=== PATIENT | male | born 1970 | race Caucasian/White ===

== ENCOUNTER 2018-10-16 21:05 | Inpatient (IN) | payer OTHER ==
[2018-10-16] MEDS ORDERED: NACL 0.9% 3 ML SYG IV (22:30)
[2018-10-16] MEDS ORDERED: ACETAMINOPHEN 325 MG TAB PO (22:30)
[2018-10-16] MEDS ORDERED: ONDANSETRON 4 MG INJ IV (22:30)
[2018-10-16] MEDS: CHLORDIAZEPOXIDE 25 MG CAP PO (23:46)
[2018-10-17] MEDS: LORAZEPAM 2 MG INJ IV ×7 (01:09→23:43)
[2018-10-17] MEDS ORDERED: DIPHENHYDRAMINE 50 MG INJ (05:21)
[2018-10-17] MEDS ORDERED: HALOPERIDOL 5 MG INJ (05:26)
[2018-10-17] MEDS: DIPHENHYDRAMINE 50 MG INJ IV (05:31)
[2018-10-17] MEDS: HALOPERIDOL 5 MG INJ IM (05:32)
[2018-10-17 07:01] LABS: ADD MAN DIFF? NO; HAAIG REFLEX REFLEX FILED
[2018-10-17 07:13] LABS: WHITE BLOOD COUNT 9.9 10^3/ul (4.8-10.8)
[2018-10-17 07:13] LABS: BASOPHIL # 0.1 10^3/ul (0.0-0.1); BASOPHILS % 0.9 % (0.0-2.0); EOSINOPHILS # 0.2 10^3/ul (0.0-0.5); EOSINOPHILS % 2.4 % (0.0-7.0); HEMOGLOBIN 12.9 g/dl (14.0-18.0); LYMPHOCYTES # 1.2 10^3/ul (0.8-2.9); LYMPHOCYTES % 11.9 % (15.0-51.0); MEAN CORPUSCULAR HGB CONC 35.8 g/dl (32.0-37.0); MEAN CORPUSCULAR VOLUME 103.2 fl (82.0-101.0); MEAN PLATELET VOLUME 10.4 fl (7.4-10.4); MONOCYTES % 9.9 % (0.0-11.0); NEUTROPHIL # 7.4 10^3/ul (1.6-7.5); NEUTROPHILS % 74.5 % (39.0-77.0); PLATELET COUNT 108 10^3/UL (140-415); RED BLOOD COUNT 3.49 10^6/ul (4.70-6.10); RED CELL DISTRIBUTION WIDTH 13.6 % (11.5-14.5)
[2018-10-17 07:20] LABS: HEMOGLOBIN A1C 4.6 % (0-5.9)
[2018-10-17 07:34] LABS: ALANINE AMINOTRANSFERASE 21 IU/L (13-69); ALBUMIN 2.9 g/dl (3.3-4.9); ALBUMIN/GLOBULIN RATIO 0.63; ALKALINE PHOSPHATASE 156 IU/L (42-121); ANION GAP 10 (5-13); ASPARTATE AMINO TRANSFERASE 99 IU/L (15-46); BILIRUBIN,INDIRECT 2.2 mg/dl (0-1.1); BILIRUBIN,TOTAL 2.6 mg/dl (0.2-1.3); BLOOD UREA NITROGEN 6 mg/dl (7-20); CARBON DIOXIDE 27 mmol/L (21-31); CHLORIDE 101 mmol/L (97-110); CHOL/HDL RATIO 4.7 RATIO; CHOLESTEROL 124 mg/dl (100-200); CREATININE 0.49 mg/dl (0.61-1.24); Estimated GFR > 60 mL/min (>60); GLUCOSE 92 mg/dl (70-220); HDL CHOLESTEROL 26 mg/dl (27-67); LDL CHOLESTEROL,CALCULATED 83 mg/dl; MAGNESIUM 1.2 mg/dl (1.7-2.5); POTASSIUM 3.2 mmol/L (3.5-5.1); SODIUM 138 mmol/L (135-144); TOTAL PROTEIN 7.5 g/dl (6.1-8.1); TRIGLYCERIDES 77 mg/dl (0-149)
[2018-10-17 08:01] LABS: HEPATITIS B SURFACE ANTIGEN NEGATIVE (NEGATIVE)
[2018-10-17 08:18] LABS: HEPATITIS B CORE ANTIBODY NEGATIVE (NEGATIVE)
[2018-10-17 08:19] LABS: HEPATITIS B SURFACE ANTIBODY NEGATIVE (NEGATIVE)
[2018-10-17] MEDS: FOLIC ACID 1 MG TAB PO (08:57)
[2018-10-17] MEDS: FAMOTIDINE 20 MG TAB PO ×2 (08:58→23:52)
[2018-10-17] MEDS: MULTIVITAMINS THERAPEUTIC TAB PO (08:58)
[2018-10-17] MEDS: THIAMINE 100 MG TAB PO (08:58)
[2018-10-17] MEDS: CHLORDIAZEPOXIDE 25 MG CAP PO ×3 (09:10→23:28)
[2018-10-17] MEDS: SOD CHLORIDE 0.9% 1,000 ML IV ×3 (09:11→23:52)
[2018-10-17] MEDS: MAGNESIUM SULFATE 4 GM/100 ML 100 ML IVPB (10:37)
[2018-10-17 13:38] LABS: ETHANOL < 10.0 mg/dl (0-0)
[2018-10-17] MEDS: MULTIVITAMINS 10 ML, FOLIC ACID 1 MG in SOD CHLORIDE 0.9% 1,000 ML IVPB (14:13)
[2018-10-17] MEDS: POTASSIUM CHLORIDE (SR) 20 MEQ TAB PO (17:40)
[2018-10-17 19:13] LABS: AMMONIA 34 umol/l (9-30)
[2018-10-17 19:53] LABS: HEPATITIS C VIRAL ANTIBODY NEGATIVE (NEGATIVE)
[2018-10-18 06:57] LABS: ADD MAN DIFF? NO
[2018-10-18 07:04] LABS: WHITE BLOOD COUNT 7.7 10^3/ul (4.8-10.8)
[2018-10-18 07:04] LABS: ABNORMAL IP MESSAGE 1; BASOPHIL # 0.1 10^3/ul (0.0-0.1); EOSINOPHILS # 0.4 10^3/ul (0.0-0.5); EOSINOPHILS % 4.7 % (0.0-7.0); HEMATOCRIT 32.4 % (42.0-52.0); HEMOGLOBIN 11.6 g/dl (14.0-18.0); LYMPHOCYTES # 1.1 10^3/ul (0.8-2.9); LYMPHOCYTES % 14.5 % (15.0-51.0); MEAN CORPUSCULAR HEMOGLOBIN 37.5 pg (29.0-33.0); MEAN CORPUSCULAR HGB CONC 35.8 g/dl (32.0-37.0); MEAN CORPUSCULAR VOLUME 104.9 fl (82.0-101.0); MEAN PLATELET VOLUME 10.4 fl (7.4-10.4); MONOCYTE # 0.8 10^3/ul (0.3-0.9); MONOCYTES % 10.7 % (0.0-11.0); NEUTROPHIL # 5.3 10^3/ul (1.6-7.5); NEUTROPHILS % 68.6 % (39.0-77.0); PLATELET COUNT 83 10^3/UL (140-415); POSITIVE DIFF @See below; RED BLOOD COUNT 3.09 10^6/ul (4.70-6.10); RED CELL DISTRIBUTION WIDTH 14.4 % (11.5-14.5)
[2018-10-18 07:26] LABS: PHOSPHORUS 3.6 mg/dl (2.5-4.9)
[2018-10-18 07:26] LABS: MAGNESIUM 1.6 mg/dl (1.7-2.5)
[2018-10-18 07:27] LABS: ALANINE AMINOTRANSFERASE 23 IU/L (13-69); ALBUMIN 2.4 g/dl (3.3-4.9); ALKALINE PHOSPHATASE 117 IU/L (42-121); ASPARTATE AMINO TRANSFERASE 87 IU/L (15-46); BILIRUBIN,INDIRECT 2.1 mg/dl (0-1.1); BILIRUBIN,TOTAL 2.6 mg/dl (0.2-1.3); TOTAL PROTEIN 6.2 g/dl (6.1-8.1)
[2018-10-18 07:30] LABS: AMMONIA 57 umol/l (9-30)
[2018-10-18] MEDS: SOD CHLORIDE 0.9% 1,000 ML IV ×2 (08:00→17:50)
[2018-10-18] MEDS: MULTIVITAMINS 10 ML, FOLIC ACID 1 MG in SOD CHLORIDE 0.9% 1,000 ML IVPB (08:28)
[2018-10-18] MEDS: CHLORDIAZEPOXIDE 25 MG CAP PO ×3 (08:29→21:16)
[2018-10-18] MEDS: THIAMINE 100 MG TAB PO (08:29)
[2018-10-18] MEDS: FAMOTIDINE 20 MG TAB PO ×2 (08:29→21:15)
[2018-10-18 11:16] LABS: ADD UMIC YES; UR AMORPHOUS CRYSTAL FEW /HPF (NONE SEEN); UR ASCORBIC ACID NEGATIVE (NEGATIVE); UR BACTERIA FEW /HPF (NONE SEEN); UR BILIRUBIN (Dip) NEGATIVE (NEGATIVE); UR BLOOD (Dip) NEGATIVE (NEGATIVE); UR CLARITY CLOUDY (CLEAR); UR COLOR AMBER (YELLOW); UR GLUCOSE (Dip) NEGATIVE (NEGATIVE); UR KETONES (Dip) NEGATIVE (NEGATIVE); UR LEUKOCYTE ESTERASE (Dip) NEGATIVE Leu/ul (NEGATIVE); UR NITRITE (Dip) NEGATIVE (NEGATIVE); UR RBC 1 /HPF (0-5); UR SPECIFIC GRAVITY (Dip) 1.009 (1.003-1.030); UR TOTAL PROTEIN (Dip) NEGATIVE (NEGATIVE); UR UROBILINOGEN (Dip) 1+ mg/dL (NEGATIVE); UR WBC 2 /HPF (0-5)
[2018-10-18] MEDS: LACTULOSE 30ML CUP PO ×3 (12:08→21:15)
[2018-10-18] MEDS: MAGNESIUM SULFATE 2 GM/50 ML 50 ML IVPB (12:10)
[2018-10-18 12:56] LABS: ANION GAP 7 (5-13); BLOOD UREA NITROGEN 5 mg/dl (7-20); CALCIUM 8.4 mg/dl (8.4-10.2); CARBON DIOXIDE 24 mmol/L (21-31); CHLORIDE 111 mmol/L (97-110); CREATININE 0.41 mg/dl (0.61-1.24); Estimated GFR > 60 mL/min (>60); GLUCOSE 86 mg/dl (70-220); POTASSIUM 3.2 mmol/L (3.5-5.1); SODIUM 142 mmol/L (135-144)
[2018-10-18] MEDS: POTASSIUM CHLORIDE (SR) 20 MEQ TAB PO (14:25)
[2018-10-19] MEDS: SOD CHLORIDE 0.9% 1,000 ML IV ×2 (04:01→14:00)
[2018-10-19] MEDS: LACTULOSE 30ML CUP PO ×3 (05:41→21:49)
[2018-10-19 06:12] LABS: ADD MAN DIFF? NO
[2018-10-19 06:16] LABS: WHITE BLOOD COUNT 7.7 10^3/ul (4.8-10.8)
[2018-10-19 06:16] LABS: ABNORMAL IP MESSAGE 1; BASOPHIL # 0.1 10^3/ul (0.0-0.1); BASOPHILS % 0.9 % (0.0-2.0); EOSINOPHILS # 0.3 10^3/ul (0.0-0.5); EOSINOPHILS % 3.8 % (0.0-7.0); HEMATOCRIT 34.5 % (42.0-52.0); HEMOGLOBIN 12.4 g/dl (14.0-18.0); LYMPHOCYTES # 1.1 10^3/ul (0.8-2.9); MEAN CORPUSCULAR HEMOGLOBIN 37.2 pg (29.0-33.0); MEAN CORPUSCULAR HGB CONC 35.9 g/dl (32.0-37.0); MEAN CORPUSCULAR VOLUME 103.6 fl (82.0-101.0); MEAN PLATELET VOLUME 9.8 fl (7.4-10.4); MONOCYTE # 0.9 10^3/ul (0.3-0.9); MONOCYTES % 11.7 % (0.0-11.0); NEUTROPHIL # 5.3 10^3/ul (1.6-7.5); NEUTROPHILS % 69.3 % (39.0-77.0); PLATELET COUNT 92 10^3/UL (140-415); POSITIVE DIFF @See below; RED BLOOD COUNT 3.33 10^6/ul (4.70-6.10); RED CELL DISTRIBUTION WIDTH 14.2 % (11.5-14.5)
[2018-10-19 06:45] LABS: AMMONIA 30 umol/l (9-30)
[2018-10-19 06:47] LABS: ANION GAP 5 (5-13); BLOOD UREA NITROGEN 4 mg/dl (7-20); CALCIUM 8.2 mg/dl (8.4-10.2); CARBON DIOXIDE 24 mmol/L (21-31); CHLORIDE 113 mmol/L (97-110); CREATININE 0.42 mg/dl (0.61-1.24); Estimated GFR > 60 mL/min (>60); GLUCOSE 82 mg/dl (70-220); POTASSIUM 3.2 mmol/L (3.5-5.1); SODIUM 142 mmol/L (135-144)
[2018-10-19 06:49] LABS: MAGNESIUM 1.5 mg/dl (1.7-2.5)
[2018-10-19 06:49] LABS: PHOSPHORUS 3.1 mg/dl (2.5-4.9)
[2018-10-19] MEDS: CHLORDIAZEPOXIDE 25 MG CAP PO ×2 (09:10→21:50)
[2018-10-19] MEDS: THIAMINE 100 MG TAB PO (09:12)
[2018-10-19] MEDS: FAMOTIDINE 20 MG TAB PO ×2 (09:12→21:50)
[2018-10-19] MEDS: SPIRONOLACTONE 50 MG TAB PO (09:13)
[2018-10-19] MEDS: MULTIVITAMINS 10 ML, FOLIC ACID 1 MG in SOD CHLORIDE 0.9% 1,000 ML IVPB (09:17)
[2018-10-19] MEDS: LORAZEPAM 2 MG INJ IV (09:51)
[2018-10-19] MEDS ORDERED: GENTAMICIN 0.3% 3.5 GM OPH OINT LEFT EYE (11:00)
[2018-10-19] MEDS: NICOTINE (21 MG/24 HR) PATCH TRANSDERM (11:00)
[2018-10-19] MEDS: POTASSIUM CHLORIDE (SR) 20 MEQ TAB PO (12:07)
[2018-10-19] MEDS: GENTAMICIN 0.3% 5 ML OPH LEFT EYE ×3 (12:20→21:51)
[2018-10-19] MEDS: HYDROCODONE/APAP (5/325) TAB PO (12:28)
[2018-10-20] MEDS: GENTAMICIN 0.3% 5 ML OPH LEFT EYE ×6 (01:00→21:29)
[2018-10-20] MEDS: LACTULOSE 30ML CUP PO ×3 (06:19→21:27)
[2018-10-20 06:42] LABS: ADD MAN DIFF? NO
[2018-10-20 06:52] LABS: WHITE BLOOD COUNT 7.3 10^3/ul (4.8-10.8)
[2018-10-20 06:52] LABS: ABNORMAL IP MESSAGE 1; BASOPHIL # 0.1 10^3/ul (0.0-0.1); BASOPHILS % 1.5 % (0.0-2.0); EOSINOPHILS # 0.4 10^3/ul (0.0-0.5); EOSINOPHILS % 5.7 % (0.0-7.0); HEMATOCRIT 35.3 % (42.0-52.0); HEMOGLOBIN 12.4 g/dl (14.0-18.0); LYMPHOCYTES % 14.2 % (15.0-51.0); MEAN CORPUSCULAR HEMOGLOBIN 37.5 pg (29.0-33.0); MEAN CORPUSCULAR HGB CONC 35.1 g/dl (32.0-37.0); MEAN CORPUSCULAR VOLUME 106.6 fl (82.0-101.0); MEAN PLATELET VOLUME 9.9 fl (7.4-10.4); MONOCYTE # 0.9 10^3/ul (0.3-0.9); MONOCYTES % 12.6 % (0.0-11.0); NEUTROPHIL # 4.8 10^3/ul (1.6-7.5); NEUTROPHILS % 65.4 % (39.0-77.0); PLATELET COUNT 92 10^3/UL (140-415); POSITIVE DIFF @See below; RED BLOOD COUNT 3.31 10^6/ul (4.70-6.10); RED CELL DISTRIBUTION WIDTH 14.1 % (11.5-14.5)
[2018-10-20 07:11] LABS: INR 1.73; PROTIME 20.3 Sec (11.9-14.9); PT RATIO 1.6
[2018-10-20 07:12] LABS: PARTIAL THROMBOPLASTIN TIME 42.5 Sec (23.0-35.0)
[2018-10-20 07:15] LABS: PHOSPHORUS 3.6 mg/dl (2.5-4.9)
[2018-10-20 07:15] LABS: MAGNESIUM 1.2 mg/dl (1.7-2.5)
[2018-10-20 07:21] LABS: ALANINE AMINOTRANSFERASE 27 IU/L (13-69); ALBUMIN 2.4 g/dl (3.3-4.9); ALBUMIN/GLOBULIN RATIO 0.61; ALKALINE PHOSPHATASE 111 IU/L (42-121); ANION GAP 5 (5-13); ASPARTATE AMINO TRANSFERASE 80 IU/L (15-46); BILIRUBIN,INDIRECT 1.7 mg/dl (0-1.1); BILIRUBIN,TOTAL 1.7 mg/dl (0.2-1.3); BLOOD UREA NITROGEN 4 mg/dl (7-20); CALCIUM 8.3 mg/dl (8.4-10.2); CARBON DIOXIDE 27 mmol/L (21-31); CHLORIDE 108 mmol/L (97-110); CREATININE 0.49 mg/dl (0.61-1.24); Estimated GFR > 60 mL/min (>60); GLUCOSE 77 mg/dl (70-220); POTASSIUM 3.3 mmol/L (3.5-5.1); SODIUM 140 mmol/L (135-144); TOTAL PROTEIN 6.3 g/dl (6.1-8.1)
[2018-10-20] MEDS: MULTIVITAMINS 10 ML, FOLIC ACID 1 MG in SOD CHLORIDE 0.9% 1,000 ML IVPB (09:08)
[2018-10-20] MEDS: CHLORDIAZEPOXIDE 25 MG CAP PO ×2 (09:09→21:28)
[2018-10-20] MEDS: SPIRONOLACTONE 50 MG TAB PO (09:09)
[2018-10-20] MEDS: THIAMINE 100 MG TAB PO (09:09)
[2018-10-20] MEDS: FAMOTIDINE 20 MG TAB PO ×2 (09:10→21:28)
[2018-10-20] MEDS: NICOTINE (21 MG/24 HR) PATCH TRANSDERM (09:11)
[2018-10-20] MEDS: POTASSIUM CHLORIDE 20 MEQ POWDER FOR ORAL SOLN PO (09:11)
[2018-10-20] MEDS: SOD CHLORIDE 0.9% 1,000 ML IV ×3 (10:00→20:00)
[2018-10-20] MEDS: MAGNESIUM SULFATE 4 GM/100 ML 100 ML IVPB (13:10)
[2018-10-21] MEDS: GENTAMICIN 0.3% 5 ML OPH LEFT EYE ×6 (01:00→20:36)
[2018-10-21] MEDS: LORAZEPAM 2 MG INJ IV (02:44)
[2018-10-21] MEDS: SOD CHLORIDE 0.9% 1,000 ML IV (05:12)
[2018-10-21] MEDS: LACTULOSE 30ML CUP PO ×3 (05:12→20:36)
[2018-10-21 06:05] LABS: ADD MAN DIFF? NO
[2018-10-21 06:09] LABS: ABNORMAL IP MESSAGE 1; BASOPHIL # 0.1 10^3/ul (0.0-0.1); BASOPHILS % 1.3 % (0.0-2.0); EOSINOPHILS # 0.3 10^3/ul (0.0-0.5); EOSINOPHILS % 3.4 % (0.0-7.0); HEMATOCRIT 35.1 % (42.0-52.0); HEMOGLOBIN 12.7 g/dl (14.0-18.0); LYMPHOCYTES # 1.1 10^3/ul (0.8-2.9); LYMPHOCYTES % 14.7 % (15.0-51.0); MEAN CORPUSCULAR HEMOGLOBIN 37.4 pg (29.0-33.0); MEAN CORPUSCULAR HGB CONC 36.2 g/dl (32.0-37.0); MEAN CORPUSCULAR VOLUME 103.2 fl (82.0-101.0); MEAN PLATELET VOLUME 9.8 fl (7.4-10.4); MONOCYTES % 12.8 % (0.0-11.0); NEUTROPHIL # 5.2 10^3/ul (1.6-7.5); NEUTROPHILS % 67.3 % (39.0-77.0); PLATELET COUNT 92 10^3/UL (140-415); POSITIVE DIFF @See below; RED CELL DISTRIBUTION WIDTH 13.7 % (11.5-14.5)
[2018-10-21 06:09] LABS: WHITE BLOOD COUNT 7.7 10^3/ul (4.8-10.8)
[2018-10-21 06:37] LABS: ALANINE AMINOTRANSFERASE 28 IU/L (13-69); ALBUMIN 2.4 g/dl (3.3-4.9); ALBUMIN/GLOBULIN RATIO 0.58; ALKALINE PHOSPHATASE 120 IU/L (42-121); ANION GAP 10 (5-13); ASPARTATE AMINO TRANSFERASE 79 IU/L (15-46); BILIRUBIN,INDIRECT 1.5 mg/dl (0-1.1); BILIRUBIN,TOTAL 1.5 mg/dl (0.2-1.3); BLOOD UREA NITROGEN 3 mg/dl (7-20); CALCIUM 8.3 mg/dl (8.4-10.2); CARBON DIOXIDE 25 mmol/L (21-31); CHLORIDE 109 mmol/L (97-110); CREATININE 0.43 mg/dl (0.61-1.24); Estimated GFR > 60 mL/min (>60); GLUCOSE 82 mg/dl (70-220); POTASSIUM 3.6 mmol/L (3.5-5.1); SODIUM 144 mmol/L (135-144); TOTAL PROTEIN 6.5 g/dl (6.1-8.1)
[2018-10-21] MEDS: MULTIVITAMINS 10 ML, FOLIC ACID 1 MG in SOD CHLORIDE 0.9% 1,000 ML IVPB (09:07)
[2018-10-21] MEDS: CHLORDIAZEPOXIDE 25 MG CAP PO (09:08)
[2018-10-21] MEDS: SPIRONOLACTONE 50 MG TAB PO (09:08)
[2018-10-21] MEDS: THIAMINE 100 MG TAB PO (09:08)
[2018-10-21] MEDS: NICOTINE (21 MG/24 HR) PATCH TRANSDERM (09:08)
[2018-10-21] MEDS: FAMOTIDINE 20 MG TAB PO ×2 (09:08→20:36)
[2018-10-22] MEDS: GENTAMICIN 0.3% 5 ML OPH LEFT EYE ×6 (00:32→21:21)
[2018-10-22] MEDS: LACTULOSE 30ML CUP PO ×3 (06:08→21:21)
[2018-10-22 06:31] LABS: ADD MAN DIFF? NO
[2018-10-22 06:49] LABS: WHITE BLOOD COUNT 8.6 10^3/ul (4.8-10.8)
[2018-10-22 06:49] LABS: ABNORMAL IP MESSAGE 1; BASOPHIL # 0.1 10^3/ul (0.0-0.1); EOSINOPHILS # 0.3 10^3/ul (0.0-0.5); EOSINOPHILS % 3.9 % (0.0-7.0); HEMATOCRIT 36.1 % (42.0-52.0); HEMOGLOBIN 12.8 g/dl (14.0-18.0); LYMPHOCYTES # 1.4 10^3/ul (0.8-2.9); LYMPHOCYTES % 16.2 % (15.0-51.0); MEAN CORPUSCULAR HGB CONC 35.5 g/dl (32.0-37.0); MEAN CORPUSCULAR VOLUME 104.3 fl (82.0-101.0); MEAN PLATELET VOLUME 10.1 fl (7.4-10.4); MONOCYTE # 1.3 10^3/ul (0.3-0.9); MONOCYTES % 14.8 % (0.0-11.0); NEUTROPHIL # 5.5 10^3/ul (1.6-7.5); NEUTROPHILS % 63.6 % (39.0-77.0); PLATELET COUNT 98 10^3/UL (140-415); POSITIVE DIFF @See below; RED BLOOD COUNT 3.46 10^6/ul (4.70-6.10); RED CELL DISTRIBUTION WIDTH 14.2 % (11.5-14.5)
[2018-10-22 07:18] LABS: ALANINE AMINOTRANSFERASE 28 IU/L (13-69); ALBUMIN 2.4 g/dl (3.3-4.9); ALBUMIN/GLOBULIN RATIO 0.63; ALKALINE PHOSPHATASE 127 IU/L (42-121); ANION GAP 9 (5-13); ASPARTATE AMINO TRANSFERASE 78 IU/L (15-46); BILIRUBIN,INDIRECT 1.4 mg/dl (0-1.1); BILIRUBIN,TOTAL 1.4 mg/dl (0.2-1.3); BLOOD UREA NITROGEN 4 mg/dl (7-20); CALCIUM 8.8 mg/dl (8.4-10.2); CARBON DIOXIDE 26 mmol/L (21-31); CHLORIDE 107 mmol/L (97-110); CREATININE 0.46 mg/dl (0.61-1.24); Estimated GFR > 60 mL/min (>60); GLUCOSE 83 mg/dl (70-220); POTASSIUM 3.4 mmol/L (3.5-5.1); SODIUM 142 mmol/L (135-144); TOTAL PROTEIN 6.2 g/dl (6.1-8.1)
[2018-10-22 07:40] LABS: MAGNESIUM 1.4 mg/dl (1.7-2.5)
[2018-10-22 07:40] LABS: PHOSPHORUS 3.7 mg/dl (2.5-4.9)
[2018-10-22] MEDS: SPIRONOLACTONE 50 MG TAB PO (09:08)
[2018-10-22] MEDS: THIAMINE 100 MG TAB PO (09:08)
[2018-10-22] MEDS: FAMOTIDINE 20 MG TAB PO ×2 (09:08→21:21)
[2018-10-22] MEDS: NICOTINE (21 MG/24 HR) PATCH TRANSDERM (09:11)
[2018-10-22] MEDS: POTASSIUM CHLORIDE 20 MEQ POWDER FOR ORAL SOLN PO (09:57)
[2018-10-22] MEDS: MAGNESIUM SULFATE 2 GM/50 ML 50 ML IVPB (09:58)
[2018-10-23] MEDS: GENTAMICIN 0.3% 5 ML OPH LEFT EYE ×6 (01:40→21:05)
[2018-10-23] MEDS: LACTULOSE 30ML CUP PO ×3 (05:26→21:05)
[2018-10-23 06:39] LABS: ADD MAN DIFF? NO
[2018-10-23 06:43] LABS: WHITE BLOOD COUNT 8.9 10^3/ul (4.8-10.8)
[2018-10-23 06:43] LABS: ABNORMAL IP MESSAGE 1; BASOPHIL # 0.1 10^3/ul (0.0-0.1); BASOPHILS % 0.8 % (0.0-2.0); EOSINOPHILS # 0.3 10^3/ul (0.0-0.5); EOSINOPHILS % 2.8 % (0.0-7.0); HEMOGLOBIN 12.7 g/dl (14.0-18.0); LYMPHOCYTES # 1.3 10^3/ul (0.8-2.9); LYMPHOCYTES % 14.9 % (15.0-51.0); MEAN CORPUSCULAR HEMOGLOBIN 37.6 pg (29.0-33.0); MEAN CORPUSCULAR HGB CONC 35.3 g/dl (32.0-37.0); MEAN CORPUSCULAR VOLUME 106.5 fl (82.0-101.0); MEAN PLATELET VOLUME 10.7 fl (7.4-10.4); MONOCYTE # 1.3 10^3/ul (0.3-0.9); MONOCYTES % 14.5 % (0.0-11.0); NEUTROPHILS % 66.7 % (39.0-77.0); PLATELET COUNT 98 10^3/UL (140-415); POSITIVE DIFF @See below; RED BLOOD COUNT 3.38 10^6/ul (4.70-6.10); RED CELL DISTRIBUTION WIDTH 14.2 % (11.5-14.5)
[2018-10-23 07:12] LABS: ALANINE AMINOTRANSFERASE 23 IU/L (13-69); ALBUMIN 2.4 g/dl (3.3-4.9); ALBUMIN/GLOBULIN RATIO 0.63; ALKALINE PHOSPHATASE 135 IU/L (42-121); ANION GAP 8 (5-13); ASPARTATE AMINO TRANSFERASE 71 IU/L (15-46); BILIRUBIN,INDIRECT 1.2 mg/dl (0-1.1); BILIRUBIN,TOTAL 1.2 mg/dl (0.2-1.3); BLOOD UREA NITROGEN 5 mg/dl (7-20); CALCIUM 8.8 mg/dl (8.4-10.2); CARBON DIOXIDE 25 mmol/L (21-31); CHLORIDE 108 mmol/L (97-110); CREATININE 0.43 mg/dl (0.61-1.24); Estimated GFR > 60 mL/min (>60); GLUCOSE 81 mg/dl (70-220); POTASSIUM 3.7 mmol/L (3.5-5.1); SODIUM 141 mmol/L (135-144); TOTAL PROTEIN 6.2 g/dl (6.1-8.1)
[2018-10-23] MEDS: NICOTINE (21 MG/24 HR) PATCH TRANSDERM (08:59)
[2018-10-23] MEDS: FAMOTIDINE 20 MG TAB PO ×2 (09:00→21:05)
[2018-10-23] MEDS: THIAMINE 100 MG TAB PO (09:00)
[2018-10-23] MEDS: SPIRONOLACTONE 50 MG TAB PO (09:00)
[2018-10-24] MEDS: GENTAMICIN 0.3% 5 ML OPH LEFT EYE ×5 (01:00→17:23)
[2018-10-24] MEDS: LACTULOSE 30ML CUP PO ×2 (05:28→13:10)
[2018-10-24 07:40] LABS: ADD MAN DIFF? NO
[2018-10-24 07:44] LABS: WHITE BLOOD COUNT 8.6 10^3/ul (4.8-10.8)
[2018-10-24 07:44] LABS: BASOPHIL # 0.1 10^3/ul (0.0-0.1); BASOPHILS % 1.2 % (0.0-2.0); EOSINOPHILS # 0.3 10^3/ul (0.0-0.5); EOSINOPHILS % 3.5 % (0.0-7.0); HEMATOCRIT 40.8 % (42.0-52.0); HEMOGLOBIN 14.3 g/dl (14.0-18.0); LYMPHOCYTES # 1.5 10^3/ul (0.8-2.9); LYMPHOCYTES % 17.3 % (15.0-51.0); MEAN CORPUSCULAR HEMOGLOBIN 37.1 pg (29.0-33.0); MEAN PLATELET VOLUME 10.5 fl (7.4-10.4); MONOCYTE # 1.2 10^3/ul (0.3-0.9); MONOCYTES % 13.3 % (0.0-11.0); NEUTROPHIL # 5.5 10^3/ul (1.6-7.5); NEUTROPHILS % 64.2 % (39.0-77.0); PLATELET COUNT 106 10^3/UL (140-415); POSITIVE DIFF @See below; RED BLOOD COUNT 3.85 10^6/ul (4.70-6.10); RED CELL DISTRIBUTION WIDTH 13.8 % (11.5-14.5)
[2018-10-24 08:03] LABS: MAGNESIUM 1.4 mg/dl (1.7-2.5)
[2018-10-24 08:03] LABS: PHOSPHORUS 4.2 mg/dl (2.5-4.9)
[2018-10-24 08:05] LABS: ALANINE AMINOTRANSFERASE 28 IU/L (13-69); ALBUMIN 2.8 g/dl (3.3-4.9); ALBUMIN/GLOBULIN RATIO 0.63; ALKALINE PHOSPHATASE 156 IU/L (42-121); ANION GAP 11 (5-13); ASPARTATE AMINO TRANSFERASE 84 IU/L (15-46); BILIRUBIN,INDIRECT 1.5 mg/dl (0-1.1); BILIRUBIN,TOTAL 1.5 mg/dl (0.2-1.3); BLOOD UREA NITROGEN 5 mg/dl (7-20); CALCIUM 9.1 mg/dl (8.4-10.2); CARBON DIOXIDE 27 mmol/L (21-31); CHLORIDE 105 mmol/L (97-110); CREATININE 0.48 mg/dl (0.61-1.24); Estimated GFR > 60 mL/min (>60); GLUCOSE 80 mg/dl (70-220); SODIUM 143 mmol/L (135-144); TOTAL PROTEIN 7.2 g/dl (6.1-8.1)
[2018-10-24] MEDS: SPIRONOLACTONE 50 MG TAB PO (08:17)
[2018-10-24] MEDS: THIAMINE 100 MG TAB PO (08:17)
[2018-10-24] MEDS: FAMOTIDINE 20 MG TAB PO (08:17)
[2018-10-24] MEDS: NICOTINE (21 MG/24 HR) PATCH TRANSDERM (08:18)
== END 2018-10-24 18:45 | disposition home or self-care (01) | DRG 896 ==
LOC: TEL 21:05 → 5EC 10-21 13:41
DX: F10.221 Alcohol dependence with intoxication delirium (principal); G92 Toxic encephalopathy; F10.239 Alcohol dependence with withdrawal, unspecified; K70.31 Alcoholic cirrhosis of liver with ascites; I10 Essential (primary) hypertension; H01.006 Unspecified blepharitis left eye, unspecified eyelid; H10.9 Unspecified conjunctivitis; Z72.0 Tobacco use
CPT/HCPCS: 76700; 80048; 80053; 80061; 80076; 80307; 81001; 82140; 83036; 83735; 84100; 85025; 85610; 85730; 86704; 86706; 86709; 86803; 87340; 97116; 97162; 97530